=== PATIENT | male | born 1945 | race Caucasian/White ===

== ENCOUNTER 2022-04-06 14:45 | Outpatient (RCR) | payer MEDICARE, BC, SELFPAY ==
--- NOTE | 2022-03-23 15:18 | PTOPEVAL1 ---
Assessment and note entered by Aden Mclaughlin, PT, DPT Evaluation Information Assessment Status Evaluation Diagnosis L TKA 11/2021 Subjective Information Pt states he had his knee replaced in November. He states he has completed therapy at 2 different facility. He states his would like him to have aquatic therapy so this is why he is switching facilities. He states his knee is fine, he reports tightness in the posterior knee after prolonged sitting. Pt states he gets up ~12 times a day. He reports good compliance with his prior HEP. Pt states he questions if he even needs to continue therapy. Reported Pain Level Pain Score 5: Self Report Assessment PT Clinical Summary Bull is a sedentary 76 y/o who presents to therapy today for his initial evaluation s/p a L TKA in January of 2022, he has completed intermittent bouts of therapy prior to this visit. Today he demonstrates decreased knee motion and increased pain on the L when compared to the R. He reports posterior knee tightness thought to be from shortened hamstrings. Overall he demonstrates functional mobility, decreased balance, and has a significantly decreased gait speed. Skilled physical therapy services are indicated to address the deficts noted above, to improve mobility, to manage pain, and to promote a return to baseline. Plan of Care Interventions Gait Training,Manual Therapy,Neuro Re-education, Patient/Caregiver Educati,Therapeutic Activities, Therapeutic Exercise PT Services Indicated Yes Treatment Frequency and 1x/wk for 4 wks Duration These treatments will address the objective and functional deficits as defined above. The patient will be advanced safely and appropriately in order for the patient to progress towards his/her prior level of function. Additional exercises will be introduced and as well as a comprehensive home exercise program upon discharge, if needed, ?to ensure carryover of functional gains achieved in the clinic. This treatment plan has been reviewed and agreement upon by the patient.
--- NOTE | 2022-04-11 10:07 | PCPTNOTE ---
Patient called & cancelled scheduled appointment this date due to being in the hospital.
--- NOTE | 2022-04-17 10:06 | PCPTNOTE ---
Patient called & cancelled scheduled re-evaluation this date due to having to take his to a doctor appointment. He has not been rescheduled at this time.
--- NOTE | 2022-04-17 13:40 | PCPTNOTE ---
Called and left voicemail for patient as he does not have any further appointments scheduled. Left instructions for his to call the clinic to reschedule if needed, if we do not hear back in a week he will be discharged.
--- NOTE | 2022-04-24 14:29 | PTOPDC ---
Assessment and note entered by Aden Mclaughlin, PT, DPT Evaluation Information Assessment Status Discharge - Pt Not Present Diagnosis L TKA 11/2021 Subjective Information Pt called last week to cancel his remaining appointments. He was called back and a voicemail was left with instructions to him to follow up with the clinic within the week if he needs to continue therapy. He has not called. Assessment PT Clinical Summary Bull has completed 3 visits of skilled therapy from 03/23/22 to 04/06/22. He has not returned and will therefore be discharged at this time. If he needs to return at a later date, he will need a new order. Plan of Care Treatment Frequency and to be discharged Duration
== END 2022-05-01 10:03 | disposition home or self-care (01) ==
LOC: ANHPT 14:45
PROVIDERS: PCP Family Medicine
DX: Z47.1 Aftercare following joint replacement surgery (principal); Z96.652 Presence of left artificial knee joint
CPT/HCPCS: 97110; 97161; 97530

== ENCOUNTER 2024-01-17 18:48 | Emergency (ER) | payer MEDICARE, OTHER, BC, SELFPAY ==
--- NOTE | ~2024-01-17 | CT_ITS ---
EXAMINATION: CT shoulder LT wo con DATE: 01/17/2024 23:21 INDICATION: Left shoulder pain. TECHNIQUE: Computed tomography (CT) of the left shoulder was performed without intravenous contrast. Automated exposure control and iterative reconstruction technique were employed. The dose-length prod uct was 473.54 mGy-cm. COMPARISON: Left shoulder radiographs 01/17/2024 FINDINGS: Bone alignment is normal. No fracture. There is severe osteoarthritis of acromioclavicular joint and mild osteoarthritis of glenohumeral joint. IMPRESSION: 1. Polyarticular osteoarthritis. Reviewed, dictated and finalized at location E.
--- NOTE | ~2024-01-17 | XR_ITS ---
EXAMINATION: XR shoulder LT min 2V DATE: 01/17/2024 19:33 INDICATION: Left shoulder pain. Fall. TECHNIQUE: 3 views of left shoulder were obtained. COMPARISON: None. FINDINGS: Bone alignment is normal. No fracture. There is mild osteoarthritis of glenohumeral joint a nd severe osteoarthritis of acromioclavicular joint. IMPRESSION: 1. Polyarticular osteoarthritis. Reviewed, dictated and finalized at location E.
[2024-01-17 19:05] VITALS: BP 161/71; PULSE 62; RESP 16; TEMP 36.4; O2SAT 99
[2024-01-17] MEDS: ACETAMINOPHEN 500 MG TABLET 1000 MG PO (22:43)
--- NOTE | 2024-01-17 22:50 | ED.FALL ---
HPI - Fall General Chief Complaint: Fall Stated Complaint: glf, left shoulder pain Time Seen by Provider: 01/17/24 21:19 Source: patient Mode of arrival: wheelchair Limitations: no limitations History of Present Illness HPI Narrative: this is a 78-year-old male that presents to the emergency department after a fall today with shoulder injury. Reports he slipped and fell onto the left shoulder. Reports pain in the shoulder and decreased range of motion. He did not hit his head or lose consciousness. Denies numbness or weakness. Related Data Home Medications Medication Instructions Recorded Confirmed albuterol sulfate 90 mcg/actuation 1 puff inhalation Q4H PRN 01/02/23 01/02/23 aerosol inhaler (Proventil HFA) azelaic acid 15 % topical gel 1 applic topical BID 01/02/23 01/02/23 finasteride 5 mg tablet 5 mg PO DAILY 01/02/23 01/02/23 fluocinonide 0.05 % topical cream 1 applic topical BID PRN 01/02/23 01/02/23 fluticasone 500 mcg-salmeterol 50 1 inh inhalation Q12H 01/02/23 01/02/23 mcg/dose blistr powdr for inhalation (Advair Diskus) losartan 100 mg tablet 100 mg PO DAILY 01/02/23 01/02/23 meloxicam 7.5 mg tablet 7.5 mg PO DAILY 01/02/23 01/02/23 mirabegron 50 mg tablet,extended 50 mg PO DAILY 01/02/23 01/02/23 release 24 hr (Myrbetriq) rosuvastatin 10 mg tablet 10 mg PO DAILY 01/02/23 01/02/23 tamsulosin 0.4 mg capsule 0.4 mg PO QHS 01/02/23 01/02/23 triamcinolone acetonide 0.1 % 1 applic topical BID 01/02/23 01/02/23 topical cream Allergies Allergy/AdvReac Type Severity Reaction Status Date / Time Penicillins Allergy Unknown ??-WAS Verified 01/02/23 11:20 GIVEN IN GRADE SCHOOL Sulfa (Sulfonamide Allergy Unknown ??-WAS Verified 01/02/23 11:20 Antibiotics) GIVEN IN GRADE SCHOOL Review of Systems Review of Systems: CONSTITUTIONAL: Denies fever MUSCULOSKELETAL: Reports joint pain, and myalgia. NEUROLOGIC: Denies numbness, or weakness. All systems reviewed & are unremarkable except as noted in HPI and below PMFSH Past Medical History Medical History (Updated 01/18/24 @ 00:00 by Sam Correa) Chronic venous hypertension (idiopathic) without complications of bilateral lower extremity Essential (primary) hypertension Morbid (severe) obesity due to excess calories Pure hypercholesterolemia, unspecified Type 2 diabetes mellitus without complications Unspecified asthma, uncomplicated Social History Social History (Updated 01/02/23 @ 11:26 by Mireille Richardson MA) Smoking status: Never smoker Alcohol intake: never Substance use: never Substance use type: does not use Lack of Transportation: No Lack of Food: Never True Current Housing: I Have Housing Concerned About Future Housing: No Difficulty Paying Gas/Electric Bills: No Difficulty Paying for Meds: No Currently Unemployed: YES Education: Bachelor's Degree Difficulty w/ Childcare or Family Care: No Living arrangements: with family Occupation/Education: retired Gender identity (if verbalized by the patient): Male Sexual Orientation (if Verbalized by the Patient): Straight or Heterosexual Exam Narrative: GENERAL: Well-appearing, well-nourished, and in no acute distress. HEAD: Normocephalic, atraumatic. EYES: EOMI. NECK: No midline spinal tenderness CHEST: Clear to auscultation. No respiratory distress. No wheezes rales or rhonchi HEART: Regular rate and rhythm. No murmur heard. Normal peripheral pulses. EXTREMITIES: No edema or obvious deformity. decreased active range of motion in the left shoulder due to pain. normal radial pulse SKIN: Warm, dry, no rash. NEURO: No focal deficits. Alert and oriented x3. PSYCH: Normal mood and affect Course Course Emergency Course: patient updated on workup and agrees with plan of care Vital Signs Vital signs: Vital Signs Temperature 97.6 F 01/17/24 19:05 Pulse Rate 62 01/17/24 19:05 Respiratory Rate 16 07/
[2024-01-17 22:58] VITALS: BP 158/72; PULSE 65; RESP 16; TEMP 36.7; O2SAT 100
== END 2024-01-17 23:58 | disposition home or self-care (01) ==
PROVIDERS: Emergency Provider Physician Assistant
DX: S49.92XA Unspecified injury of left shoulder and upper arm, initial encounter (principal); I87.303 Chronic venous hypertension (idiopathic) without complications of bilateral lower extremity; I10 Essential (primary) hypertension; E66.01 Morbid (severe) obesity due to excess calories; Z68.38 Body mass index [BMI] 38.0-38.9, adult; E78.00 Pure hypercholesterolemia, unspecified; E11.9 Type 2 diabetes mellitus without complications; J45.909 Unspecified asthma, uncomplicated; Z79.899 Other long term (current) drug therapy; M19.012 Primary osteoarthritis, left shoulder; W01.0XXA Fall on same level from slipping, tripping and stumbling without subsequent striking against object, initial encounter
CPT/HCPCS: 73030; 73200; 99284; A9270

== ENCOUNTER 2024-02-05 15:49 | Emergency (ER) | payer MEDICARE, BC, SELFPAY ==
[2024-02-05] VITALS (8 sets, daily range): BP systolic 111–148; BP diastolic 56–86; PULSE 55–71; RESP 15–21; TEMP 36.5; O2SAT 96–98
--- NOTE | ~2024-02-05 | XR_ITS ---
EXAMINATION: XR chest 1V DATE: 02/05/2024 16:22 INDICATION: Dizziness TECHNIQUE: frontal view of the chest was obtained. COMPARISON: Chest radiograph dated 04/04/2018 FINDINGS: The lungs are clear with no focal airspace opacities, pulmonary edema, pleural effusion or pneumothor ax. The cardiomediastinal silhouette is normal. There are bridging osteophytes at multiple levels con sistent with diffuse idiopathic skeletal hyperostosis (DISH). IMPRESSION: 1. No acute cardiopulmonary disease. Reviewed, dictated and finalized at location A.
--- NOTE | ~2024-02-05 | XR_ITS ---
EXAMINATION: XR shoulder LT min 2V DATE: 02/05/2024 18:16 INDICATION: Left shoulder pain post fall TECHNIQUE: AP and transscapular Y views of the left shoulder were obtained. COMPARISON: None FINDINGS: Normal alignment. No fracture.Mild left glenohumeral osteoarthritis. Severe acromioclavicular osteoa rthritis. Soft tissues are unremarkable. IMPRESSION: Severe left acromioclavicular osteoarthritis. No acute osseous abnormality. Reviewed, dictated and finalized at location A.
--- NOTE | ~2024-02-05 | CT_ITS ---
EXAMINATION: CT brain wo con DATE: 02/05/2024 18:32 INDICATION: Fall after becoming wobbly TECHNIQUE: Computed tomography (CT) of the head was performed without intravenous contrast. Sagittal and coronal reconstructions were performed. The mA was adjusted according to patient size. Iterative reconstruction technique was employed. The dose-length product was 681.00 mGy-cm. COMPARISON: None FINDINGS: No fracture. No acute intracranial hemorrhage, acute infarction or abnormal extra axial fluid collect ion. There is mild scattered white matter hypoattenuation consistent with chronic small vessel ischem ic disease. Symmetric prominence of the sulci and ventricles consistent with moderate age-appropriate diffuse cerebral volume loss. No mass/mass effect. Changes of bilateral intraocular lens replacement . The orbits, paranasal sinuses and mastoid air cells are normal. IMPRESSION: 1. No fracture or acute intracranial process. 2. Age-related changes including moderate diffuse volume loss and mild scattered white matter hypoatt enuation consistent with chronic small vessel ischemic disease. Reviewed, dictated and finalized at location A. IMPRESSION: 1. No fracture or acute intracranial process. 2. Age-related changes including moderate diffuse volume loss and mild scattere d white matter hypoattenuation consistent with chronic small vessel ischemic di sease.
--- NOTE | 2024-02-05 15:57 | ECG_ITS ---
Test Date: 2024-02-05 16:52:43 Measurements Intervals [place] Rate: 58 P: 37 IL: 195 QRS: -6 QRSD: 153 T: 23 QT: 428 QTc: 423 Interpretive Statements SINUS BRADYCARDIA RIGHT BUNDLE BRANCH BLOCK BASELINE WANDER- V6 ABNORMAL ECG No previous ECG available for comparison Electronically Signed On 02-05-2024 20:27:58 CDT by Qasim Martinez D.O.
[2024-02-05 17:49] LABS: Basophils Absolute Auto 0.1 K/mm3 (0.0-0.1); Basophils Percent Auto 0.8 % (0.2-1.2); Eosinophils Absolute Auto 0.1 K/mm3 (0-0.3); Eosinophils Percent Auto 0.8 % (0-4.4); Hematocrit 42.5 % (42.0-52.0); Hemoglobin 14.5 g/dL (14.0-18.0); Immature Granulocyte Absolute 0.07 K/mm3 (0.00-0.031); Immature Granulocyte Percent A 0.7 % (0-0.5); Lymphocytes Absolute Auto 0.99 K/mm3 (0.9-3.2); Lymphocytes Percent Auto 9.3 % (18.3-44.2); Mean Corpuscular HGB Conc 34.1 g/dl (32-36); Mean Corpuscular Hemoglobin 30.9 pg (26-34); Mean Corpuscular Volume 90.4 fl (80-100); Mean Platelet Volume 9.3 fl (7.4-10.4); Monocytes Absolute Auto 0.9 K/mm3 (0.1-0.6); Monocytes Percent Auto 8.7 % (2.6-8.5); Neutrophils Absolute Auto 8.4 K/mm3 (1.3-6.7); Neutrophils Percent Auto 79.7 % (45.5-73.1); Platelet Count Result 159 k/mm3 (150-375); Red Cell Distribution Width 15.7 % (11.5-14.5); White Blood Count 10.6 K/mm3 (4.5-10.0)
[2024-02-05 17:59] LABS: Alanine Aminotransferase 18 U/L (6-50); Albumin Level 3.9 g/dL (3.5-5.1); Alkaline Phosphatase 66 U/L (38-126); Anion Gap 10 mmol/L (4-12); Aspartate Amino Transferase 29 U/L (17-59); Bilirubin,Total 0.6 mg/dL (0.2-1.3); Blood Urea Nitrogen 23 mg/dL (9-20); Calcium 8.5 mg/dL (8.4-10.2); Carbon Dioxide 24 mmol/L (22-30); Chloride 100 mmol/L (98-107); Estimated CRCL calculation 65 ml/min; Estimated Glomerular Filt Rate > 60; Glucose 115 mg/dL (65-110); Potassium 3.7 mmol/L (3.4-5.0); Sodium 134 mmol/L (137-145)
--- NOTE | 2024-02-05 18:00 | ED.FALL ---
HPI - Fall General Chief Complaint: Fall Stated Complaint: fall into grass Time Seen by Provider: 02/05/24 17:40 Source: patient and family Mode of arrival: ambulatory Limitations: no limitations History of Present Illness HPI Narrative: Patient was walking to his mailbox in the flat driveway when he slipped on the ground/grass and to the ground. He denies any preceding weakness. No loss of consciousness or muscle tone. He did not strike his head. Complaining of left shoulder pain for frequently. He has a history of an injury there from approximately 1 month ago but denies any previous fracture dislocation. He ambulates with a cane at baseline. Patient states his pain is 5/6 of 10 severity. No chest pain or difficulty breathing. Related Data Home Medications Medication Instructions Recorded Confirmed albuterol sulfate 90 mcg/actuation 1 puff inhalation Q4H PRN 01/02/23 01/02/23 aerosol inhaler (Proventil HFA) azelaic acid 15 % topical gel 1 applic topical BID 01/02/23 01/02/23 finasteride 5 mg tablet 5 mg PO DAILY 01/02/23 01/02/23 fluocinonide 0.05 % topical cream 1 applic topical BID PRN 01/02/23 01/02/23 fluticasone 500 mcg-salmeterol 50 1 inh inhalation Q12H 01/02/23 01/02/23 mcg/dose blistr powdr for inhalation (Advair Diskus) losartan 100 mg tablet 100 mg PO DAILY 01/02/23 01/02/23 meloxicam 7.5 mg tablet 7.5 mg PO DAILY 01/02/23 01/02/23 mirabegron 50 mg tablet,extended 50 mg PO DAILY 01/02/23 01/02/23 release 24 hr (Myrbetriq) rosuvastatin 10 mg tablet 10 mg PO DAILY 01/02/23 01/02/23 tamsulosin 0.4 mg capsule 0.4 mg PO QHS 01/02/23 01/02/23 triamcinolone acetonide 0.1 % 1 applic topical BID 01/02/23 01/02/23 topical cream Allergies Allergy/AdvReac Type Severity Reaction Status Date / Time Penicillins Allergy Unknown ??-WAS Verified 01/02/23 11:20 GIVEN IN GRADE SCHOOL Sulfa (Sulfonamide Allergy Unknown ??-WAS Verified 01/02/23 11:20 Antibiotics) GIVEN IN GRADE SCHOOL [facility] Past Medical History Medical History (Updated 02/06/24 @ 00:01 by Background Daemon) Chronic venous hypertension (idiopathic) without complications of bilateral lower extremity Essential (primary) hypertension Morbid (severe) obesity due to excess calories Pure hypercholesterolemia, unspecified Type 2 diabetes mellitus without complications Unspecified asthma, uncomplicated Social History Social History Social History: Ambulates with a cane Smoking status: Never smoker Alcohol intake: never Substance use: never Substance use type: does not use Lack of Transportation: No Lack of Food: Never True Current Housing: I Have Housing Concerned About Future Housing: No Difficulty Paying Gas/Electric Bills: No Difficulty Paying for Meds: No Currently Unemployed: YES Education: Bachelor's Degree Difficulty w/ Childcare or Family Care: No Living arrangements: with family Occupation/Education: retired Gender identity (if verbalized by the patient): Male Sexual Orientation (if Verbalized by the Patient): Straight or Heterosexual Exam Narrative: GENERAL: Well-appearing, well-nourished, and in no acute distress. HEAD: Normocephalic, atraumatic. EYES: Non injected, non icteric ENT: Nares clear, no rhinorrhea or epistaxis. NECK: Supple. CHEST: Speaking in full sentences. No respiratory distress. HEART: Regular rate and rhythm. ABDOMEN: Obesity. Soft, nondistended. EXTREMITIES: Venous stasis SKIN: Warm, dry, no rash. NEURO: No focal deficits. Alert and oriented x3. PSYCH: Normal mood and affect. Course Vital Signs Vital signs: Vital Signs Temperature 97.7 F 02/05/24 15:54 Pulse Rate 71 02/05/24 15:54 Respiratory Rate 16 02/05/24 15:54 Blood Pressure 111/86 02/05/24 15:54 Pulse Oximetry 98 02/05/24 15:54 Oxygen Delivery Room Air 02/05/24 15:54 Temperature
[2024-02-05 18:17] LABS: Add Urine Microscopic? NO; Appearance Urine Clear (Clear); Bilirubin Urine Negative (Negative); Blood Urine Negative (Negative); Color Urine Yellow (Yellow); Glucose Urine UA Negative (Negative); Ketones Urine Negative (Negative); Leukocyte Esterase Ur Negative LEU/UL (Negative); Nitrate Urine Negative (Negative); Protein Urine Negative (Negative); Specific Grav Ur 1.016 (1.001-1.035); Urobilinogen Urine 0.2 mg/dL (<2.0)
[2024-02-05] MEDS: HYDROcodone/acetaminophen (*CRX) 5-325 MG TABLET 1 TAB PO (18:40)
== END 2024-02-05 20:15 | disposition home or self-care (01) ==
PROVIDERS: Emergency Provider Student in an Organized Health Care Education/Training Program
DX: S49.92XA Unspecified injury of left shoulder and upper arm, initial encounter (principal); M19.012 Primary osteoarthritis, left shoulder; D72.829 Elevated white blood cell count, unspecified; I45.10 Unspecified right bundle-branch block; I10 Essential (primary) hypertension; I87.303 Chronic venous hypertension (idiopathic) without complications of bilateral lower extremity; E11.9 Type 2 diabetes mellitus without complications; E78.00 Pure hypercholesterolemia, unspecified; E66.01 Morbid (severe) obesity due to excess calories; Z68.41 Body mass index [BMI] 40.0-44.9, adult; J45.909 Unspecified asthma, uncomplicated; Z79.899 Other long term (current) drug therapy; W01.0XXA Fall on same level from slipping, tripping and stumbling without subsequent striking against object, initial encounter
CPT/HCPCS: 36415; 70450; 71045; 73030; 80053; 81003; 85025; 93005; 99284; A9270